=== PATIENT | male | born 1960 | race Caucasian/White ===

== ENCOUNTER → 2022-09-19 | Outpatient (CLI) | payer BC ==
[2022-09-20 13:20] LABS: Alternaria alternata IgE 4.02 kU/L; Aspergillus fumagatus IgE <0.10 kU/L; Birch IgE <0.10 kU/L; Cladosporian herbarum IgE <0.10 kU/L; Cockroach IgE <0.10 kU/L; Dermato. farinae IgE <0.10 kU/L; Elm IgE <0.10 kU/L; Oak IgE <0.10 kU/L; Ragweed,Common IgE 1.12 kU/L; Red Top (Bentgrass) IgE 0.26 kU/L
== END | disposition home or self-care (01) ==
LOC: LABWHC1 09:49
PROVIDERS: ATTEND Internal Medicine
DX: J30.9 Allergic rhinitis, unspecified (principal)
CPT/HCPCS: 36415; 82785; 85008; 86003

== ENCOUNTER → 2024-01-30 | Outpatient (CLI) | payer MEDICARE, BC ==
[2024-01-30 15:34] LABS: Blood Urea Nitrogen 16.1 mg/dL (9.0-27.0); Calcium 9.4 mg/dL (8.7-10.3); Carbon Dioxide 22.9 mmol/L (21.6-31.8); Chloride 105 mmol/L (96-109); Glucose 128 mg/dL (70-110); Potassium 4.5 mmol/L (3.5-5.5); Sodium 140 mmol/L (135-145)
[2024-01-30 15:57] LABS: Basophils # (A) 0.08 X 10*3/uL (0.00-0.10); Basophils % (A) 0.7 %; Eosinophils # (A) 0.25 X 10*3/uL (0.04-0.35); Eosinophils % (A) 2.2 %; HCT 50.1 % (39.6-50.0); Lymphocytes % (A) 17.7 %; MCH 30.3 pg (27.0-32.0); MCHC 31.9 g/dL (32.0-37.0); MCV 94.9 FL (80.0-97.0); Mean Platelet Volume 10.5 FL (9.5-12.2); Monocytes # (A) 0.77 X 10*3/uL (0.20-1.00); Monocytes % (A) 6.8 %; NRBC Per 100 WBC 0 X 10*3/uL (0.00-0.01); Neutrophils # (A) 8.12 X 10*3/uL (1.80-7.70); Platelet Count 360 X 10*3/uL (140-440); RBC 5.28 X 10*6/uL (4.40-5.60); RDW 13.2 % (11.5-14.5); WBC 11.29 X 10*3/uL (4.50-10.00)
[2024-01-30 16:24] LABS: Appearance,Urine Turbid (Clear); Bilirubin,Urine Negative (Negative); Blood,Urine Negative (Negative); Color,Urine Yellow (Yellow); Ketones,Urine Negative (Negative); Nitrite,Urine Negative (Negative); Specific Gravity,Urine 1.022 (1.001-1.030); Urobilinogen,Urine 0.2 E.U./DL
[2024-01-30 16:37] LABS: Bacteria,Urine None Seen (None Seen)
== END | disposition home or self-care (01) ==
LOC: LABWHC1 09:19
PROVIDERS: ATTEND Urology
DX: Z01.818 Encounter for other preprocedural examination (principal); C61 Malignant neoplasm of prostate; R94.31 Abnormal electrocardiogram [ECG] [EKG]
CPT/HCPCS: 36415; 71046; 80048; 81001; 85025; 86850; 86900; 86901; 87086; 93005

== ENCOUNTER 2024-02-05 09:57 | Day surgery (SDC) | payer MEDICARE, BC ==
--- NOTE | 2024-01-28 11:06 | P.HPIHPCON ---
History of Present Illness H&P Date: 01/28/24 Chief Complaint: Prostate cancer This is a 63-year-old male with history of [place] 7 (3+4)prostate cancer. Option of robotic prostatectomy, versus radiation therapy versus observation was discussed with him in detail. Risk benefit of each approach were discussed, he agreed to proceed with a robotic radical prostatectomy, aware of the risk which includes but not limited to bleeding, infection, injury to nearby organs which includes bowel bladder and rectum. Risk of urinary incontinence erectile dysfunction were discussed in details. Risk of anesthesia was also discussed. He understood all the risk and agreed to proceed Consent for Procedure: I have explained the operation/procedure to the patient, including the risks, benefits, side effects, alternative therapies (including not receiving the proposed treatment or service), the likelihood of the patient achieving his/her goals, and potential recuperation problems for the procedure/sedation/analgesia, as well as any blood products, if indicated. I also explained to the patient the risks, benefits and side effects of the alternatives, as well as the risks related to not receiving the proposed procedure, care, treatment, or services. Surgical - Exam - General no distress, no pain - Eyes normal ocular movement, no pale - ENT normal nares, normal mucosa - Respiratory normal expansion, normal respiratory effort - Abdomen Abdomen: soft, non tender - Psychiatric oriented to time, oriented to person, oriented to place Assessment and Plan Assessment: OR for robotic radical prostatectomy with bilateral pelvic lymph node dissection
[2024-02-05 10:46] LABS: Glucose,Whole Blood 109 mg/dL (70-110)
[2024-02-05] MEDS: IV FLUID CONTINUATION 1,000 ML IV ONE ×2 (10:53)
[2024-02-05] MEDS: DEXAMETHASONE SOD PHOSPHATE 4 MG/ML 1 ML VIAL IVP STA (10:56)
[2024-02-05] MEDS: ONDANSETRON 4 MG/2 ML VIAL IVP PRN (11:01)
[2024-02-05] MEDS: MIDAZOLAM 2 MG/2 ML VIAL IVP ONE (11:10)
[2024-02-05] MEDS: fentaNYL (PF) 50 MCG/ML 2 ML AMP IVP ONE (11:10)
[2024-02-05] MEDS ORDERED: PROPOFOL 10 MG/ML 20 ML VIAL IV ONE (11:26)
[2024-02-05] MEDS ORDERED: MIDAZOLAM 2 MG/2 ML VIAL ONE (11:26)
[2024-02-05] MEDS ORDERED: HYDROmorphone (PF) 1 MG/ML ONE (11:26)
[2024-02-05] MEDS ORDERED: ROCURONIUM 10 MG/ML (5 ML VIAL) IV ONE (11:26)
[2024-02-05] MEDS ORDERED: NEOSTIGMINE 1 MG/ML 10 ML VIAL ONE (11:26)
[2024-02-05] MEDS ORDERED: DEXAMETHASONE SOD PHOSPHATE 4 MG/ML 1 ML VIAL ONE (11:26)
[2024-02-05] MEDS ORDERED: GLYCOPYRROLATE 0.2 MG/ML 2 ML VIAL ONE (11:26)
[2024-02-05] MEDS ORDERED: SUCCINYLCHOLINE CHLORIDE 200 MG/10 ML VIAL IV ONE (11:26)
[2024-02-05] MEDS ORDERED: ROPIVACAINE 5 MG/ML 30 ML VIAL ONE (11:26)
[2024-02-05] MEDS ORDERED: SODIUM CHLORIDE 0.9% (PF) 10 ML VIAL ONE (11:26)
[2024-02-05] MEDS ORDERED: PHENYLEPHRINE-0.9% NACL SYG 1,000 MCG/10 ML SYRINGE ONE (11:26)
[2024-02-05] MEDS ORDERED: fentaNYL (PF) 50 MCG/ML 2 ML AMP ONE (11:26)
[2024-02-05] MEDS ORDERED: LIDOCAINE 1% INJ 10MG/ML (20 ML MDV) ONE (11:26)
[2024-02-05] MEDS: LACTATED RINGERS 1,000 ML IV ONE ×2 (11:28)
[2024-02-05] MEDS: BUPIVACAINE (PF) 0.25% 30 ML VIAL SQ ONE ×2 (12:24)
--- NOTE | 2024-02-05 12:31 | P.ANPRN ---
Procedure Note - Anesthesia - Nerve Block Performed Bilateral Erector Spinae Single Time Out Performed: Yes Date of Procedure: 02/05/24 Procedure Start Time: : Procedure Stop Time: :18 Location of Patient: PreOp Indication: Acute Post-Operative Pain, Requested by Surgeon Sedation Type: Sedate with meaningful contact maintained Preparation: Sterile Prep Position: Prone Needle Types: Pajunk Needle Gauge: 21 Ultrasound used to visualize needle placement: Yes Ultrasound used to observe medication spread: Yes Injectate: 0.5% Ropivacaine (see comment for volume) (15 ml + 10 ml NS + 4 mg Dexamethasone per side) Blood Aspirated: No Pain Paresthesia on Injection Noted: No Resistance on Injection: Normal Image Stored and Saved: Yes Events: Uneventful and Well Tolerated
[2024-02-05] MEDS ORDERED: ONDANSETRON 4 MG/2 ML VIAL IVP PRN (16:01)
[2024-02-05] MEDS ORDERED: ALBUTEROL NEBULIZED 2.5 MG/3 ML INHALATION PRN (16:01)
[2024-02-05] MEDS ORDERED: HYDROmorphone 1 MG/ML 1 ML SYRINGE IVP PRN (16:01)
--- NOTE | 2024-02-05 16:07 | P.OP ---
Date of Procedure: 02/05/24 Preoperative Diagnosis: Prostate cancer Postoperative Diagnosis: Same Procedure(s) Performed: Robotic radical prostatectomy with bilateral pelvic lymph node dissection Implants: none Anesthesia: JOSEA Surgeon: Aurelio Lorenz Estimated Blood Loss (ml): 200 Pathology: other (Prostate bilateral seminal vesicle, bilateral pelvic lymph nodes) Condition: stable Disposition: PACU Indications for Procedure: This is a 63-year-old male with history of [place] 7 (3+4)prostate cancer. Option of robotic prostatectomy, versus radiation therapy versus observation was discussed with him in detail. Risk benefit of each approach were discussed, he agreed to proceed with a robotic radical prostatectomy, aware of the risk which includes but not limited to bleeding, infection, injury to nearby organs which includes bowel bladder and rectum. Risk of urinary incontinence erectile dysfunction were discussed in details. Risk of anesthesia was also discussed. He understood all the risk and agreed to proceed Description of Procedure: After preoperative antibiotics were started, the patient was taken to the operating room. Anesthesia was induced and the patient was placed in a supine position, with adequate padding of the pressure points, shoulders, back, legs and arms. He was then prepped and draped in the standard fashion. A critical pause was performed using two patient identifiers. A 16F zuluaga catheter was placed to gravity drainage. A pneumo-peritoneum was created with placement of a Veress needle to 20 mm Hg without complication, and a 8 Fr trocar was placed above the umbillicus. Under direct vision a 8mm robotic ports was placed lateral to each rectus slightly below the camera port. The left iliac fossa 8mm port was placed. The right inside sales assistant right iliac fossa 12mm port and right paramedian 5mm portwere placed. After the patient was placed in the trendelenberg position, the robot was then docked to the 8mm robotic ports and then each robotic arm and tower was checked in relation to the patient's legs and hands to avoid inadvertent compression. The peritoneal cavity was inspected. An inverted U-shaped incision began laterally to the left medial umbilical ligament and extended high across the midline to the right umbilical ligament. The limbs of the "U" extended to the level of the vasa on both sides. We next developed the preperitoneal space and the space of Retzius. Cautery was used to dissected the bladder away from the prostate. After the anterior bladder neck was incised and the bladder entered the the posterior bladder neck was exposed and the ureteral orifces identified. The posterior bladder neck was then incised and dissected away from the prostate. The vas and the seminal vesicles were now exposed and dissected to their insertions into the prostate and were not spared. The posterior layer of the Denonvillier's fascia was incised to enter camelia the plane between prostate and perirectal fat. Each lateral pedicle was controlled with clips and cautery for hemostasis. Complete nerve preservation was performed bilaterally. the puboprostatic ligament was incised where it inserted into the apex of the prostate and a plane between urethra and dorsal venous complex developed to expose the anterior urethral surface. The anterior wall of the urethra was transected with the cut setting a few millimeters distal to the apex of the prostate. The dorsal vein was ligated using 3-0 V lock bilateral obturator and external iliac lymph node packets were carefully dissected after careful visualization of the hypogastric artery and obturator nerve. There was careful attention paid to hemostasis with judicious use of cautery. The urethrovesical anastomosis was performed . the posterior denovillers was reapproximated using 3-0 V lock. A 6 and 6 inch 3-0 V-Lock suture was used to anastomose the urethra and bladder, starting at the 6:00 posterior position. Mucosa was secured in every stitch, to ensure a mucosa to mucosa anastomosis. The stitch was regularly cinched and the anastomosis tightened. Care was taken to not violate the ureteral orifices. The Zuluaga catheter was advanced, the bladder filled, and the anastomosis was tested, as described above. Anastomsis was watertight at 150 mL The periumbilical fascia was closed with 1-0-PDS suture in [id number] fashion. All ports were closed with a subcuticular 4-0 monocryl and Dermabond. Sponge, instrument, and needle counts were correct at the end of the case x2. All specimens including prostate and lymph nodes were sent to pathology for diagnosis and will be available in a week. The patient tolerated the surgery well and without complication. He awoke without difficulty and was taken to the recovery room in stable condition
[2024-02-05 16:18] LABS: Glucose,Whole Blood 179 mg/dL (70-110)
[2024-02-05] MEDS ORDERED: DEXTROSE 50% SYRINGE 50 ML IVP PRN ×2 (17:03)
[2024-02-05 17:38] LABS: Glucose,Whole Blood 190 mg/dL (70-110)
[2024-02-05] MEDS: KETOROLAC 15 MG/ML 1 ML VIAL IVP SCH (17:46)
[2024-02-05] MEDS: PANTOPRAZOLE 40 MG TABLET PO SCH (17:47)
[2024-02-05] MEDS: INSULIN ASPART (NovoLOG) 100 UNIT/ML VIAL SQ SCH (17:52)
[2024-02-05] MEDS ORDERED: NON FORMULARY DRUG (Budesonide/Glycopyr/Formoterol [Breztri Aerosphere Inhaler] 10.7 GM Gm INHALATION SCH (21:00)
[2024-02-05 21:06] LABS: Glucose,Whole Blood 151 mg/dL (70-110)
[2024-02-05] MEDS: MONTELUKAST 10 MG TAB PO SCH (21:06)
[2024-02-05] MEDS: IPRATROPIUM 0.5 MG/2.5 ML NEBU INHALATION SCH (21:07)
[2024-02-05] MEDS: SYMBICORT 160-4.5 MCG INHALER INHALATION SCH (21:07)
[2024-02-05] MEDS: D5-0.45% NACL WITH KCL 20MEQ/L 1,000 ML IV SCH (21:07)
[2024-02-05] MEDS: HEPARIN SODIUM,PORCINE 5,000 UNIT/ML 1 ML VIAL SQ SCH (23:51)
[2024-02-06] MEDS: NON FORMULARY DRUG (Budesonide/Glycopyr/Formoterol [Breztri Aerosphere Inhaler] 10.7 GM Gm INHALATION SCH (03:47)
[2024-02-06 06:13] LABS: Glucose,Whole Blood 113 mg/dL (70-110)
[2024-02-06 08:23] VITALS: BP 129/76; PULSE 69; RESP 18; TEMP 97.9
[2024-02-06 11:59] LABS: Glucose,Whole Blood 111 mg/dL (70-110)
--- NOTE | 2024-02-06 18:59 | P.DS ---
Providers Attending physician: Aurelio Lorenz MD Primary care physician: [facility] Course: This is a 64-year-old male with history of prostate cancer, underwent a robotic radical prostatectomy on February 04. Please see op note dated February 04 for surgery details. Patient was admitted to the hospital postoperatively. He did well in the postoperative period. He was discharged home with a Hamlin catheter, at time of discharge he was tolerating a diet, ambulating, and pain was controlled Patient Condition at Discharge: Good Plan - Discharge Summary Discharge Rx Participant: No New Discharge Prescriptions: New Ciprofloxacin HCl [Cipro] 500 mg PO BID 3 Days #6 tab Ketorolac [Toradol] 10 mg PO Q6HR PRN #15 tab PRN Reason: Pain No Action glipiZIDE [glipiZIDE ER] 2.5 mg PO HS Omeprazole [PriLOSEC] 20 mg PO AC-BID Montelukast [Singulair] 10 mg PO HS Albuterol Inhaler [Ventolin Hfa Inhaler] 1 - 2 puff INHALATION Q6H PRN PRN Reason: Shortness Of Breath Budesonide/Glycopyr/Formoterol [Breztri Aerosphere Inhaler] 2 puff INHALATION BID Discharge Medication List Albuterol Inhaler [Ventolin Hfa Inhaler] 1 - 2 puff INHALATION Q6H PRN 02/04/24 [History] Budesonide/Glycopyr/Formoterol [Breztri Aerosphere Inhaler] 2 puff INHALATION BID 02/04/24 [History] Montelukast [Singulair] 10 mg PO HS 02/04/24 [History] Omeprazole [PriLOSEC] 20 mg PO AC-BID 02/04/24 [History] glipiZIDE [glipiZIDE ER] 2.5 mg PO HS 02/04/24 [History] Ciprofloxacin HCl [Cipro] 500 mg PO BID 3 Days #6 tab 02/06/24 [Rx] Ketorolac [Toradol] 10 mg PO Q6HR PRN #15 tab 02/06/24 [Rx] Follow up Appointment(s)/Referral(s): Aurelio Lorenz MD [STAFF PHYSICIAN] - 02/19/24 9:00 am Activity/Diet/Wound Care/Special Instructions: It's normal to have blood in the urine no heavy lifting or straining start your antibiotics one day prior to your follow up appointment Discharge Disposition: HOME SELF-CARE
== END 2024-02-06 15:10 | disposition home or self-care (01) ==
LOC: OR 09:57 → 4SSUR 16:37 → OR 02-06 15:10
PROVIDERS: ATTEND Urology
DX: C61 Malignant neoplasm of prostate (principal); G89.18 Other acute postprocedural pain; J45.909 Unspecified asthma, uncomplicated; E11.9 Type 2 diabetes mellitus without complications; K21.9 Gastro-esophageal reflux disease without esophagitis; Z90.79 Acquired absence of other genital organ(s); Z79.51 Long term (current) use of inhaled steroids; Z79.899 Other long term (current) drug therapy; Z79.84 Long term (current) use of oral hypoglycemic drugs
CPT/HCPCS: 55866; 38571; 94640; 94760; 64999; 88344; 88309; C1762; J2250; J0330; J1644 ×2; J1100; J2710; J2405; J2001; J3010; J1170; J2795; J1885 ×2; J2704; J2371; J0665